=== PATIENT | female | born 1990 | race Caucasian/White ===

== ENCOUNTER → 2017-03-05 | Outpatient (REF) ==
[~2017-03-05] MED LIST: MOTRIN 800800 MG/TAB PO; NO HOME MEDICATIONS; NORCO 325 MG-51 TAB PO; PERCOCET 325 MG1 TA2 PO; ZITHROMAX Z PA250 MG PO
== END ==
LOC: WSOH 09:53
DX: Z00.00 Encounter for general adult medical examination without abnormal findings (principal)

== ENCOUNTER → 2017-03-17 | Outpatient (REF) | LOC: WSOH 11:14 | DX: Z11.1 Encounter for screening for respiratory tuberculosis (principal) ==

== ENCOUNTER 2019-03-07 21:58 | Emergency (ER) | payer BC ==
[~2019-03-07] VITALS: Ht 172.7 cm; Wt 104.5 kg
[2019-03-07 22:20] VITALS: TEMP 98.2
[2019-03-07 23:05] VITALS: BP 134/80; PULSE 92
== END 2019-03-07 23:06 | disposition home or self-care (01) ==
LOC: COL.ER 21:58
DX: S93.402A Sprain of unspecified ligament of left ankle, initial encounter (principal); X50.0XXA Overexertion from strenuous movement or load, initial encounter; Y92.009 Unspecified place in unspecified non-institutional (private) residence as the place of occurrence of the external cause; Z98.890 Other specified postprocedural states

== ENCOUNTER → 2020-09-06 | Outpatient (CLI) | payer BC ==
[~2020-09-06] MED LIST changes: +IBU600 MG PO; +PRENATAL TABLET PO
== END | disposition still patient (30) ==
LOC: ZCOL.LAB
DX: Z20.828 Contact with and (suspected) exposure to other viral communicable diseases (principal)

== ENCOUNTER 2020-09-11 05:31 | Inpatient (IN) | payer BC ==
[~2020-09-11] VITALS: Ht 175.3 cm; Wt 105.5 kg
[2020-09-11] VITALS (19 sets, daily range): BP systolic 101–135; BP diastolic 63–89; PULSE 63–87; TEMP 97.5–98.5
[~2020-09-11 05:31] MED LIST changes: -IBU600 MG PO; -PRENATAL TABLET PO
--- NOTE | 2020-09-11 05:45 | NUR ---
0545 ADM TO 210 FOR REPEAT C/SECT. ORIENTED TO ROOM. EFM ON. PERMITS SIGNED AND IV STARTED.
[2020-09-11 06:19] LABS: BASO % 0.2 % (0.0-2.0); EOS # 0.1 (0.0-0.7); EOS % 0.7 % (0-4.0); GRAN # 8.9 (1.4-6.5); HEMOGLOBIN 12.2 g/dl (12.5-16.0); LYMPH # 2.6 (1.2-3.4); LYMPH % 20.9 % (20.0-51.0); MEAN CELL VOLUME 94 fl (80.0-100.0); MEAN CORPUSCULAR HEMOGLOBIN 31 pg (27.0-31.0); MEAN CORPUSCULAR HGB CONC 34 g/dl (33.0-37.0); MEAN PLATELET VOLUME 11.1 fl (7.4-10.4); MONO # 0.8 (0.1-0.6); MONO % 6.1 % (1.7-9.3); PLATELET COUNT 219 K/mm3 (130-400); RED BLOOD COUNT 3.88 M/mm3 (4.10-5.30); REDCELL DISTRIBUTION WIDTH-CV 13.3 % (11.5-14.5)
[2020-09-11 06:20] LABS: HEMATOCRIT 36.3 % (37.0-47.0)
[2020-09-11] MEDS ORDERED: PRENATAL TABLET PO (06:25)
--- NOTE | 2020-09-11 11:15 | NUR ---
Patient pivots to wheel chair with assist x1. Denies any dizziness or lightheadedness in transfer. To nursery to see .
--- NOTE | 2020-09-11 12:30 | NUR ---
Patient ambulatory to bathroom with stand by assist. Pierre catheter removed. Marilin care provided. Pads changed. Ambulatory back to bed independently. Resting with call light within reach.
[2020-09-12 03:51] VITALS: BP 117/75; PULSE 68; TEMP 97.8
[2020-09-12 06:45] VITALS: BP 107/59; PULSE 67; TEMP 98.1
[2020-09-12] MEDS ORDERED: IBU600 MG PO (08:39)
[2020-09-12] MEDS ORDERED: PERCOCET 325 MG1 TA2 PO (08:40)
--- NOTE | 2020-09-12 08:45 | NUR ---
Pt doing well, pain medications given per orders.
--- NOTE | 2020-09-12 09:11 | NUR ---
Initial visit; Patient thanked Neighborhood Aide for offering congratulations and God's blessings for the of her son. Neighborhood Aide thanked patient for choosing [facility].
[2020-09-12 16:21] VITALS: BP 120/77; PULSE 73; TEMP 97.8
--- NOTE | 2020-09-12 16:38 | NUR ---
Pt has had a good day, has walked the halls 2 times and been to nursery for infants bath. She feels well. No clots noted to lochia. She has mild swelling and bruising noted to lower abdomen, insision. Abdominal binder repositioned and she was going to lay down for a while.
[2020-09-12 19:41] VITALS: BP 118/76; PULSE 80; TEMP 98.2
[2020-09-13 08:00] VITALS: BP 124/66; PULSE 80; TEMP 97.8
--- NOTE | 2020-09-13 10:27 | NUR ---
Initial visit; Patient thanked [employer] Supervisor for looking in on her and offering spiritual care. Staci hinted that she has some issues she would like to discuss and asked if [employer] Supervisor would return a little later to visit. [employer] Supervisor did look in on Staci an hour later and found her resting. [employer] Supervisor will continue to attempt another visit.
== END 2020-09-13 11:35 | disposition home or self-care (01) | DRG 788 ==
LOC: OB 05:31
PROVIDERS: ADMIT Obstetrics & Gynecology
PROC: 10D00Z1 Extraction of Products of Conception, Low, Open Approach (ICD-10-PCS; principal; 2020-09-11)
DX: O34.211 Maternal care for low transverse scar from previous cesarean delivery (principal); Z3A.39 39 weeks gestation of pregnancy; Z37.0 Single live birth
CPT/HCPCS: J0690; J1885; J2370; J2405; J2590; J3010; J7120